=== PATIENT | female | born 1960 | race American Indian/Alaskan Native ===

== ENCOUNTER 2018-04-06 14:46 | Emergency (ER) | payer OTHER ==
[2018-04-06 14:56] VITALS: BP 146/110
[2018-04-06 18:26] LABS: Basophils % (Auto) 0.6 % (0.0-1.8); Eosinophils # (Auto) 0.1 K/mm3 (0.0-0.4); Eosinophils % (Auto) 0.7 % (0.0-4.3); Hemoglobin 15.4 gm/dl (10.1-14.3); Lymphocytes # (Auto) 1.6 K/mm3 (1.2-5.4); Lymphocytes % (Auto) 19.1 % (13.4-35.0); Mean Corpuscular HGB Conc 33 % (30-34); Mean Corpuscular Volume 104 fl (79-97); Monocytes # (Auto) 0.6 K/mm3 (0.0-0.8); Monocytes % (Auto) 7.1 % (0.0-7.3); Platelet Count 338 K/mm3 (140-440); Red Blood Count 4.53 M/mm3 (3.65-5.03); Red Cell Distribution Width 15.2 % (13.2-15.2)
[2018-04-06 18:48] LABS: Alanine Aminotransferase 15 units/L (7-56); Albumin 4.2 g/dL (3.9-5); BUN/Creatinine Ratio 22; Bilirubin,Direct 0.4 mg/dL (0-0.2); Blood Urea Nitrogen 20 mg/dL (7-17); Calcium 9.1 mg/dL (8.4-10.2); Hemolysis Index 10
--- NOTE | 2018-04-06 19:38 | Emergency Department Report ---
ED Abdominal Pain HPI - General Chief Complaint: Abdominal Pain Stated Complaint: SWOLLEN LEGS Time Seen by Provider: 04/06/18 17:43 Source: patient Mode of arrival: Ambulatory Limitations: No Limitations - History of Present Illness Initial Comments: This is a 57-year-old female nontoxic, well nourished in appearance, no acute signs of distress presents to the ED with c/o of intermittent epigastric "fullness" and bilateral leg swelling months. Patient denies any nausea or vomiting. Patient denies any abdominal pain or back pain. Patient denies chest pain, short of breath, fever, chills, headache, stiff neck, numbness or tingling. Patient denies any diarrhea or constipation. Patient denies any recent travels. Patient denies any allergies. PMH incudes CHF and appendectomy. Patient stated that she does have a roundhouse worker doctor that she follows and denies taking any medications for her CHF. MD Complaint: abdominal pain, other (bilateral leg swelling) -: month(s) Radiation: none Severity scale (0 -10): 0 Consistency: intermittent Improves With: nothing Worsens With: nothing Associated Symptoms: denies other symptoms. denies: nausea, vomiting, diarrhea, fever, chills, constipation, dysuria, hematemesis, hematochezia, melena, he maturia, anorexia, syncope - Related Data Previous Rx's Medication Instructions Recorded Last Taken Type Carvedilol [Coreg] 12.5 mg PO DAILY #30 tablet 04/06/18 Unknown Rx Furosemide [Lasix TAB] 40 mg PO QDAY #30 tablet 04/06/18 Unknown Rx Lisinopril [Prinivil] 10 mg PO DAILY #30 tablet 04/06/18 Unknown Rx hydrALAZINE [Apresoline TAB] 25 mg PO DAILY #30 tablet 04/06/18 Unknown Rx Allergies Allergy/AdvReac Type Severity Reaction Status Date / Time No Known Allergies Allergy Unverified 04/06/18 14:56 ED Review of Systems ROS: Stated complaint: SWOLLEN LEGS Other details as noted in HPI Constitutional: denies: chills, fever Eyes: denies: eye pain, eye discharge, vision change ENT: denies: ear pain, throat pain Respiratory: denies: cough, shortness of breath, wheezing Cardiovascular: denies: chest pain, palpitations Endocrine: no symptoms reported Gastrointestinal: other. denies: abdominal pain, nausea, diarrhea Genitourinary: denies: urgency, dysuria, discharge Musculoskeletal: denies: back pain, joint swelling, arthralgia Skin: denies: rash, lesions Neurological: denies: headache, weakness, paresthesias Psychiatric: denies: anxiety, depression Hematological/Lymphatic: denies: easy bleeding, easy bruising ED Past Medical Hx - Past Medical History Previous Medical History?: Yes - Surgical History Hx Appendectomy: Yes - Social History Smoking Status: Current Every Day Smoker - Medications Home Medications: Home Medications Medication Instructions Recorded Confirmed Last Taken Type Carvedilol [Coreg] 12.5 mg PO DAILY #30 tablet 04/06/18 Unknown Rx Furosemide [Lasix TAB] 40 mg PO QDAY #30 tablet 04/06/18 Unknown Rx Lisinopril [Prinivil] 10 mg PO DAILY #30 tablet 04/06/18 Unknown Rx hydrALAZINE [Apresoline TAB] 25 mg PO DAILY #30 tablet 04/06/18 Unknown Rx ED Physical Exam - General Limitations: No Limitations General appearance: alert, in no apparent distress - Head Head exam: Present: atraumatic, normocephalic - Eye Eye exam: Present: normal appearance - Neck Neck exam: Present: normal inspection, full ROM - Respiratory Respiratory exam: Present: normal lung sounds bilaterally. Absent: respiratory distress, wheezes, rales, rhonchi, stridor, chest wall tenderness, accessory muscle use, decreased breath sounds, prolonged expiratory - Cardiovascular Cardiovascular Exam: Present: regular rate, normal rhythm, normal heart sounds. Absent: systolic murmur, diastolic murmur, rubs, gallop - GI/Abdominal GI/Abdominal exam: Present: soft, normal bowel sounds. Absent: distended, tenderness, guarding, rebound, rigid, diminished bowel sounds, hyperactive bowel sounds, hypoactive bowel sounds, mass, pulsatile mass, hernia - Expanded GI/Abdominal Exam Expanded GI/Abdominal exam: Absent: psoas sign, Ambrose's sign, Rovsing's sign, tenderness at Mcburney's Point, ascites - Extremities Exam Extremities exam: Present: normal inspection, full ROM, normal capillary refill. Absent: tenderness, joint swelling - Expanded Lower Extremity Exam Left Hip exam: Present: normal inspection (bilateral exam), full ROM (bilateral exam) Upper Leg exam: Present: normal inspection (bilateral exam), full ROM (bilateral exam) Knee exam: Present: normal inspection (bilateral exam), full ROM (bilateral exam) Lower Leg exam: Present: normal inspection (bilateral exam), full ROM (bilateral exam), swelling (bilateral exam). Absent: tenderness, abrasion, laceration, ecchymosis, deformity, crepidus, dislocation, erythema, palpable cord, Alexandre's sign Ankle exam: Present: normal inspection (bilateral exam), full ROM (bilateral exam), swelling (bilateral exam). Absent: tenderness Foot/Toe exam: Present: normal inspection (bilateral exam), full ROM (bilateral exam), swelling (bilateral exam). Absent: tenderness, abrasion, laceration, ecchymosis, deformity, crepidus, dislocation, erythema, amputation, puncture wound, foreign body, calcaneal tenderness, tenderness at base of 5th metatarsal, nail avulsion, subungual hematoma Neuro vascular tendon exam: Present: no vascular compromise (bilateral exam) Gait: Positive: observed and normal - Back Exam Back exam: Present: normal inspection, full ROM - Neurological Exam Neurological exam: Present: alert, oriented X3 - Psychiatric Psychiatric exam: Present: normal affect, normal mood - Skin Skin exam: Present: warm, dry, intact, normal color. Absent: rash - Other Other exam information: 2+ pitting edema bilaterally lower extremities ED Course Vital Signs 04/06/18 14:51 Temperature 98.6 F Pulse Rate 116 H Blood Pressure 146/110 O2 Sat by Pulse 99 Oximetry - Reevaluation(s) Reevaluation #1: 04/06/18 19:53 Patient is speaking in full sentences with no signs of distress noted. - Consultations Consultation #1: 04/06/18 19:53 Patient has been consulted with Eric Acosta about patient history, physical exam, and labs and agrees to ED plan of care and stated if EKG and Trop levels within normal limits patient can be discharged with follow-up. Consultation #2: 04/06/18 22:05 Patient was consulted with Katie Schmidt about patient history, physical exam, labs, EKG and chest x-ray and agrees to discharge plan of care with follow-up. ED Medical Decision Making - Lab Data Result diagrams: 04/06/18 18:10 04/06/18 18:10 - Medical Decision Making This is a 57-year-old female that presents with CHF exacerbation. Patient is stable and was examined by me and Dr. Roach . EKG with no significant changes. I gave patient a dose of Lasix in the ED. Patient was also discussed with Dr. Romero about results and agrees with discharge with follow. Patient is asymptomatic. Patient is also requesting medication refill which is lisinopril, hydralazine and carvedilol. Patient states she does have a roundhouse worker in [place] it communications specialist. Patient was referred to Follow-up with a roundhouse worker in 24 hours or if symptoms worsen and continue return to emergency room as soon as possible. At time of discharge, the patient does not seem toxic or ill in appearance. No acute signs of distress noted. Patient agrees to discharge treatment plan of care. No further questions noted by the patient. Critical care attestation.: If time is entered above; I have spent that time in minutes in the direct care of this critically ill patient, excluding procedure time. ED Disposition Clinical Impression: CHF exacerbation Qualifiers: Heart failure type: unspecified Qualified Code(s): I50.9 - Heart failure, unspecified Disposition: DC-01 TO HOME OR SELFCARE Is pt being admited?: No Does the pt Need Aspirin: No Condition: Stable Instructions: Heart Failure (ED), Leg Edema (ED) Additional Instructions: Follow-up with a roundhouse worker in 24 hours or if symptoms worsen and continue return to emergency room as soon as possible. Prescriptions: Carvedilol [Coreg] 12.5 mg PO DAILY #30 tablet Furosemide [Lasix TAB] 40 mg PO QDAY #30 tablet hydrALAZINE [Apresoline TAB] 25 mg PO DAILY #30 tablet Lisinopril [Prinivil] 10 mg PO DAILY #30 tablet Referrals: [facility] [Other] - 3-5 Days REFUGIO WARD MD [Staff Physician] - 3-5 Days [facility] [Provider Group] - 24 Hours GABRIELLE MALDONADO MD [Staff Physician] - 24 Hours Forms: Work/School Release Form(ED)
[2018-04-06] MEDS ORDERED: IBUPROFEN PO ONE (20:13)
[2018-04-06 21:07] LABS: Bacteria,Urine 1+ /HPF (Negative); Bilirubin,Urine NEG (Negative); Blood,Urine NEG (Negative); Color,Urine Yellow (Yellow); Mucus,Urine FEW /HPF; Urobilinogen,Urine < 2.0 mg/dL (<2.0)
--- NOTE | 2018-04-06 21:26 | XRay Report ---
FINAL REPORT EXAM: XR ABD SERIES W CXR 1V HISTORY: abd pain/epigastric pain TECHNIQUE: Frontal view of the chest and supine and upright views of the abdomen. PRIORS: None. FINDINGS: The chest x-ray demonstrates clear lungs and a normal cardiomediastinal silhouette. Cardiac silhouette is moderately to markedly enlarged. The pulmonary vascularity appears normal. The lungs are clear. Abdominal radiographs show a normal bowel gas pattern. There is no evidence of ileus or obstruction. There osteoarthrosis of the bilateral hips with remodeling of the bilateral femoral heads and thicke ramon of the femoral necks. IMPRESSION: 1. Moderate to severe cardiomegaly 2. Normal bowel gas pattern 3. Osteoarthrosis of the bilateral hips
[2018-04-06] MEDS ORDERED: LASIX PO ONE ×3 (22:05→23:00)
== END 2018-04-06 23:00 | disposition home or self-care (01) ==
LOC: ED 14:46
DX: I50.9 Heart failure, unspecified (principal); M79.89 Other specified soft tissue disorders; F17.200 Nicotine dependence, unspecified, uncomplicated; Z90.89 Acquired absence of other organs
CPT/HCPCS: 36415; 74022; 80048; 80076; 81001; 83880; 84484; 85025; 93005; 93010